=== PATIENT | male | born 1995 | race Caucasian/White ===

== ENCOUNTER 2022-04-30 05:39 | Emergency (ER) | payer SELFPAY ==
[2022-04-30 06:09] VITALS: BP 131/91; PULSE 64; RESP 18; TEMP 97.9; BMI 22.3
== END 2022-04-30 06:51 | disposition home or self-care (01) ==
LOC: JER 05:39
DX: T40.411A Poisoning by fentanyl or fentanyl analogs, accidental (unintentional), initial encounter (principal)
CPT/HCPCS: 99282-25